=== PATIENT | female | born 1980 | race Caucasian/White ===

== ENCOUNTER 2018-03-31 11:26 | Day surgery (SDC) | payer BC ==
[~2018-03-31] VITALS: Ht 175.3 cm; Wt 87.9 kg
[2018-03-31] MEDS ORDERED: ANXIETY PO (12:07)
[2018-03-31] MEDS ORDERED: BUTISOL SODIUM PO (12:07)
== END 2018-03-31 13:00 | disposition home or self-care (01) ==
LOC: ORSCSDS 11:26
PROVIDERS: Anesthesiology
PROC: 3E0R33Z Introduction of Anti-inflammatory into Spinal Canal, Percutaneous Approach (ICD-10-PCS; principal; 2018-03-31 12:30)
DX: M54.16 Radiculopathy, lumbar region (principal); M54.5 Low back pain; F41.8 Other specified anxiety disorders; Z79.899 Other long term (current) drug therapy
CPT/HCPCS: J1040

== ENCOUNTER 2019-06-15 12:18 | Day surgery (SDC) | payer BC ==
[~2019-06-15] VITALS: Ht 175.3 cm; Wt 89.4 kg
[~2019-06-15 12:18] MED LIST: ANXIETY PO; BUTISOL SODIUM PO; ESCI10 PO; Estradiol1 MG PO; HYDR1TAB94 PO
[2019-06-15] MEDS ORDERED: DICL25ER PO (12:31)
[2019-06-15] MEDS ORDERED: Fiorinal Capsu1 EACH PO (12:31)
[2019-07-18] MEDS ORDERED: Diclofenac Pota50 MG PO (10:45)
== END 2019-06-15 13:25 | disposition home or self-care (01) ==
LOC: ORSCSDS 12:18
PROVIDERS: Anesthesiology
PROC: 3E0R33Z Introduction of Anti-inflammatory into Spinal Canal, Percutaneous Approach (ICD-10-PCS; principal; 2019-06-15 13:15)
DX: M51.16 Intervertebral disc disorders with radiculopathy, lumbar region (principal); E03.9 Hypothyroidism, unspecified; F41.8 Other specified anxiety disorders; Z79.899 Other long term (current) drug therapy
CPT/HCPCS: J1040

== ENCOUNTER 2019-07-19 11:02 | Day surgery (SDC) | payer BC ==
[~2019-07-19] VITALS: Ht 175.3 cm; Wt 88.7 kg
[~2019-07-19 11:02] MED LIST changes: +DICL25ER PO; +Diclofenac Pota50 MG PO; +Fiorinal Capsu1 EACH PO
== END 2019-07-19 12:08 | disposition home or self-care (01) ==
LOC: ORSCSDS 11:02
PROVIDERS: Anesthesiology
PROC: 3E0R33Z Introduction of Anti-inflammatory into Spinal Canal, Percutaneous Approach (ICD-10-PCS; principal; 2019-07-19 12:00)
DX: M51.16 Intervertebral disc disorders with radiculopathy, lumbar region (principal); E03.9 Hypothyroidism, unspecified; Z79.899 Other long term (current) drug therapy
CPT/HCPCS: J1040

== ENCOUNTER → 2024-12-29 | Outpatient (CLI) | payer BC ==
[2025-01-05 14:42] LABS: HPV HIGH RISK BY TMA Not Detected; HPV SOURCE Cervical
== END | disposition home or self-care (01) ==
LOC: LAB 18:24 → LAB SHORT 18:24
PROVIDERS: Nurse Practitioner Family
DX: Z12.4 Encounter for screening for malignant neoplasm of cervix (principal)
CPT/HCPCS: 87624; G0123